=== PATIENT | male | born 1970 | race Caucasian/White ===

== ENCOUNTER 2019-05-10 13:37 | Emergency (ER) | payer OTHER ==
[~2019-05-10] VITALS: Ht 177.8 cm; Wt 129.3 kg
[2019-05-10] MEDS ORDERED: LISINOPRIL20 MG PO (13:44)
[2019-05-10 14:04] LABS: HEMATOCRIT 50.8 % (42.0-52.0); HEMOGLOBIN 17.7 gm/dL (14.0-18.0); MCH 28.8 pg (26.0-34.0); MCHC 34.9 g/dL (28.0-37.0); MCV 82.4 fL (80.0-100.0); MPV 7.6 fl. (7.2-11.1); RBC 6.16 mil/uL (4.50-6.00); RDW-CV 13.3 % (10.5-14.5); WBC 7.8 thou/uL (4.0-11.0)
[2019-05-10 14:16] LABS: CALCIUM 8.8 mg/dL (8.5-10.1); POTASSIUM 4.3 mmol/L (3.5-5.1)
[2019-05-10 14:21] LABS: ALBUMIN 3.6 g/dL (3.4-5.0); TOTAL PROTEIN 7.9 g/dL (6.4-8.2)
[2019-05-10 15:37] VITALS: BP 150/94
== END 2019-05-10 15:40 ==
LOC: M.ERS 13:37
PROVIDERS: Personal Emergency Response Attendant
DX: K42.9 Umbilical hernia without obstruction or gangrene (principal); I10 Essential (primary) hypertension